=== PATIENT | female | born 1950 | race Caucasian/White ===

== ENCOUNTER 2019-12-18 09:20 | Outpatient (CLI) | payer MEDICARE ==
--- NOTE | 2019-12-18 13:32 | BD ---
DEXA BONE DENSITY STUDY: Date: 12/18/2019 HISTORY: Postmenopausal. FINDINGS: Lumbar Spine: BMD (g/cm2) L1 0.785 T-Score: -1.9 L2 0.834 T-Score: -1.8 L3 0.904 T-Score: -1.6 L4 0.811 T-Score: -2.3 Total 0.833 T-Score: -1.9 Left Femoral Neck: 0.595 T-Score: -2.3 Total Femur: 0.690 T-Score: -2.1 IMPRESSION: Osteopenia of the lumbar spine and left femoral neck. The 10 year fracture risk for a major osteoporotic fracture is 13% and for a hip fracture is 3.6%. [facility] for an [facility]. POS: MARIA E
--- NOTE | 2019-12-24 13:26 | MMO ---
Bilateral MAMMO Bilat Screen [facility] E. CLINICAL HISTORY: Patient is 69 years old and is seen for screening. The patient has no family history of breast cancer. The patient has a history of Skin cancer. VIEWS: The views performed were: bilateral craniocaudal with tomosynthesis and bilateral mediolateral oblique with tomosynthesis. FILMS COMPARED: The present examination has been compared to prior imaging studies performed at [facility] on 05/26/2010 and 08/01/2012, and at [facility] on 01/24/2009 and 02/14/2009. This study has been interpreted with the assistance of computer-aided detection. MAMMOGRAM FINDINGS: The breasts are heterogeneously dense, which could obscure a lesion on mammography. There are no suspicious masses, suspicious calcifications, or new areas of architectural distortion. IMPRESSION: THERE IS NO MAMMOGRAPHIC EVIDENCE OF MALIGNANCY. A ROUTINE FOLLOW-UP MAMMOGRAM IN 1 YEAR IS RECOMMENDED. THE RESULTS OF THIS EXAM WERE SENT TO THE PATIENT. ACR BI-RADS Category 1 - Negative MAMMOGRAPHY NOTE: 1. A negative mammogram report should not delay a biopsy if a dominant of clinically suspicious mass is present. 2. Approximately 10% to 15% of breast cancers are not detected by mammography. 3. Adenosis and dense breasts may obscure an underlying neoplasm. Reported by: TROY ESPINO MD Electonically Signed: [id number]
== END 2019-12-18 09:21 | disposition home or self-care (01) ==
LOC: BICMAMMO 09:20
PROVIDERS: ATTEND Family Medicine
DX: Z12.31 Encounter for screening mammogram for malignant neoplasm of breast (principal); Z13.820 Encounter for screening for osteoporosis; Z78.0 Asymptomatic menopausal state; Z85.828 Personal history of other malignant neoplasm of skin; M85.89 Other specified disorders of bone density and structure, multiple sites
CPT/HCPCS: 77063; 77067; 77080